=== PATIENT | female | born 1960 | race Caucasian/White ===

== ENCOUNTER 2024-11-25 21:26 | Emergency (ER) | payer BC, SELFPAY ==
[2024-11-25 21:30] VITALS: BP 150/84
[2024-11-25 22:00] VITALS: BP 137/78
[2024-11-25 22:01] VITALS: BMI 29.0
[2024-11-25 22:19] LABS: % Basophils 0.3 % (0-2); % Eosinophils 0.5 % (0-6); % Immature Granulocytes 0.3 % (0-0.5); % Lymphocytes 29.3 % (20.5-51.1); % Monocytes 5.4 % (1.7-9.3); % Neutrophils 64.2 % (42.2-75.2); Absolute Lymphocytes 1.8 10^3/uL (1.2-3.4); Absolute Monocytes 0.3 10^3/uL (0.1-0.6); Hematocrit 38.3 % (37.0-47.0); Hemoglobin 12.6 g/dL (12.0-16.0); Mean Corp Hgb Conc. 32.9 g/dL (33.0-37.0); Mean Corpuscular Hgb 27.1 pg (27.0-31.0); Mean Corpuscular Volume 82.4 fL (81.0-99.0); Mean Platelet Volume 8.9 fL (7.4-10.4); Nucleated Red Blood Cells % 0 %; Platelet Count 323 10^3/uL (130-400); Red Blood Cell Count 4.65 10^6/uL (4.20-5.40); Red Cell Dist. Width 14.6 % (11.5-14.5); White Blood Cell Count 6.3 10^3/uL (4.8-10.8)
[2024-11-25 22:33] LABS: ALT (SGPT) 25 U/L (0-35); AST (SGOT) 22 U/L (14-36); Albumin 3.8 g/dl (3.5-5.0); Alkaline Phosphatase 104 U/L (38-126); Blood Urea Nitrogen 14 mg/dl (7-17); Carbon Dioxide 28 mmol/L (22-30); Chloride 107 mmol/L (98-107); Estimated Creatinine Clearance 61 ml/min; Glucose 221 mg/dl (70-99); Lipase 59 U/L (23-300); Potassium 4.4 mmol/L (3.5-5.1); Sodium 142 mmol/L (135-145); Total Bilirubin 0.6 mg/dl (0.2-1.3); Total Protein 6.7 g/dl (6.3-8.2); eGFR > 60.00
[2024-11-25 23:00] VITALS: BP 155/83
--- NOTE | 2024-11-25 23:51 | ED.GENMED ---
History of Present Illness
General
Chief Complaint: Social Service Referral
Source: patient
Exam Limitations: none
Time Seen by Provider: 11/25/24 22:34
Nursing documentation reviewed up to this point in time: agreed with
History of Present Illness
History of Present Illness:
64-year-old female past medical history of hypertension hyperlipidemia, diabetes presenting to the emergency department today with concerns of abdominal pain described as diffuse abdominal pain that was not assessed while she was admitted to .
[facility] at the 2 days ago she was treated for pneumonia at the time. She also was concerned she does not a place to live but does claim to have a trust fund and plenty of money. Has a history of anxiety and depression does feel anxious and
depressed. Denies any thoughts of harming herself or others.
Past History
Past History
ED Past Medical History: None
ED Past Surgical History: (X3 )
Social History
Living: with family
Review of Systems
Review of Systems
Allergies reviewed?: Yes
All Other Systems: ROS reviewed and negative except as documented in HPI and ROS
Phy Exam
Physical Exam
Physical Exam:
GENERAL: Alert , in no apparent distress
EYE: pupils equal and reactive
NECK: Supple, no significant adenopathy.
ENT: o/p clr, mmm.
CARDIAC: Regular rate and rhythm .
LUNGS: Clear breath sounds bilaterally, no acute respiratory distress, no wheezes/rales/rhonchi
ABDOMEN: Soft, without focal tenderness, no r/g, no cvat
NEUROLOGICAL: Alert and oriented, no focal neuro deficits
SKIN: Warm and dry, skin intact.
MUSCULOSKELETAL: No edema, well perfused.
PSYCH: Normal and appropriate interaction.
Course
Orders/Labs/Results
Orders:
Orders
11/25/24 22:09
Complete Blood Count/With Diff Urgent
Comprehensive Metabolic Panel Urgent
Lipase Urgent
11/25/24 22:51
CT Abd/Pel (IV only)-[facility] only Urgent
Comment:
Reason For Exam: diffuse ab dpain
Crisis Consult Urgent
Reason for Consult: depression.anxiety
Urinalysis Reflex To Culture Urgent
Date Specimen was Collected: 11/26/24
Time Specimen was Collected: 00:51
11/26/24 00:53
Urine Microscopic Reflex Cult Urgent
11/26/24 01:30
Case Management Consult ONCE
Case Management Consult: Discharge Planning
Abnormal Lab Results
11/25/24 11/26/24
22:09 00:53
MCHC 32.9 L g/dL
(33.0-37.0)
RDW 14.6 H %
(11.5-14.5)
Glucose 221 H mg/dl
(70-99)
Ur Occult Blood Reflex 4+ A
(Negative)
Urine RBC 16-20 A /HPF
(0-2)
Urine Albumin (Reflex) 2+ A
(Neg - Trace)
11/25/24 22:09
11/25/24 22:09
Vital Signs
Initial and Last Documented VS:
Initial Vital Signs
Temp Pulse Resp BP Pulse Ox
98.1 F 92 18 150/84 98
11/25/24 21:30 11/25/24 21:30 11/25/24 21:30 11/25/24 21:30 11/25/24 21:30
Last Documented Vital Signs
Temp Pulse Resp BP Pulse Ox
98.1 F 64 24 136/87 96
11/25/24 21:30 11/26/24 02:00 11/26/24 02:00 11/26/24 02:00 11/26/24 02:00
MDM/Problems Addressed
MDM/Problems Addressed:
64-year-old female presenting to the emergency department today with concerns of abdominal pain. Was discharged from [facility] for pneumonia 2 days ago. Per arrival here vital signs normal patient no distress does have some vague abdominal
pain plan proceed given for further assessment. Also wanted to speak with crisis due to having ongoing anxiety depression does have a psychiatrist and does take daily medications for this. Patient denies any specific thoughts of harming yourself
or others. Is well kempt no indication for 302 at this time. She did complain of abdominal pain had a CT scan that showed a 4 mm stone but no signs of complication normal labs normal urinalysis advised for close follow-up with urology. Was given
a strainer and Flomax. Advised for Motrin Tylenol for discomfort. Stable for discharge advised for close urology follow-up return precautions given.
*Critical Care Note
Total Time (30-74mins, 75-104mins- exclusive of procedures): Not Applicable
ED Attending Note
-
Portions of this chart may have been created with voice recognition software.� Occasional wrong word or��sound alike� substitutions may have occurred due to the inherent limitations of voice recognition software.
Discharge Plan
Departure
Patient Disposition: Home (Routine Discharge)
Date of Disposition: 11/26/24
Time of Disposition: 02:05
Patient with high blood pressure during this ER visit?: No
Condition: Good
Covid-19: Not Applicable
Discharge Problem:
Calculus, ureteral
Instructions: Kidney Stones (DC)
Prescriptions:
New
tamsulosin [Flomax] 0.4 mg capsule
0.4 mg PO DAILY Qty: 10 0RF
No Action
dextroamphetamine-amphetamine [Adderall] 20 MG tablet
20 mg PO TID
tamsulosin 0.4 MG capsule
0.4 mg PO DAILY Qty: 7 0RF
hydrocodone-acetaminophen 5 MG/500 MG tablet
1 tab PO Q4HPRN PRN (Reason: PAIN) Qty: 12 0RF
Referrals:
Flashner,David C., MD [Active, Urology]
UNKNOWN - PT DOES,NOT KNOW [Family Provider]
Activity Restrictions/Additional Instructions:
You came to the emergency department with multiple concerns. You were found to have a 4 mm stone in your ureter important follow-up with urology and use the urinary strainer. Return for any worsening, new or concerning symptoms.
Interventions
Interventions:
*Risk Screen - Suicide Last Done: 11/25/24 21:30
*General Assessment Last Done: 11/25/24 21:30
*ED- Fall Risk Assessment Last Done: 11/25/24 21:30
*ED COVID-19 Vaccine History Last Done: 11/25/24 21:30
SU-Gjcjab-Jyfrewhkre Assessment Last Done: 11/25/24 22:03
ED-Psychological Assessment Last Done: 11/25/24 22:04
Discharge Date and Time
Print Language: TAMAZIGHT
[2024-11-26 00:48] VITALS: BP 146/81
[2024-11-26 01:00] VITALS: BP 143/74
[2024-11-26 01:01] LABS: Urine Albumin 2+ (Neg - Trace); Urine Bilirubin Negative (Negative); Urine Character Cloudy (Clear); Urine Color Yellow; Urine Glucose Negative (Negative); Urine Ketone Negative (Negative); Urine Leukocyte Negative (Negative); Urine Nitrite Negative (Negative); Urine Occult Blood 4+ (Negative); Urine Specific Gravity 1.015 (<1.030); Urine Urobilinogen 1+ (Neg - 1+)
[2024-11-26 01:46] LABS: Urine Squamous Cell 26-30 /LPF (Few)
[2024-11-26 01:47] LABS: Urine Red Blood Cell 16-20 /HPF (0-2); Urine White Cell 0-2 /HPF (0-5)
[2024-11-26 02:00] VITALS: BP 136/87
[2024-11-26 02:43] VITALS: BP 136/87
== END 2024-11-26 02:00 | disposition home or self-care (01) ==
LOC: EMR 21:26
PROVIDERS: Physician Assistant; EMERGENCY PHYSICIAN Emergency Medicine
DX: N20.1 Calculus of ureter (principal); J18.9 Pneumonia, unspecified organism; R53.1 Weakness; R11.0 Nausea; Z59.00 Homelessness unspecified; I10 Essential (primary) hypertension; E78.5 Hyperlipidemia, unspecified; E11.9 Type 2 diabetes mellitus without complications; F41.9 Anxiety disorder, unspecified; F32.A Depression, unspecified; F90.9 Attention-deficit hyperactivity disorder, unspecified type; Z79.84 Long term (current) use of oral hypoglycemic drugs; Z91.040 Latex allergy status; Z96.653 Presence of artificial knee joint, bilateral
CPT/HCPCS: 99284; 74177; 80053; 81003; 81015; 83690; 85025; Q9967